=== PATIENT | female | born 1935 | race African-American/Black ===

== ENCOUNTER 2018-04-08 11:25 | Inpatient (IN) | payer MEDICARE, OTHER ==
[~2018-04-08] VITALS: Ht 162.6 cm; Wt 68.9 kg
[2018-04-08] MEDS ORDERED: SODIUM CHLORIDE 0.9% 500 ML IV ONE (11:37)
[2018-04-08 12:35] LABS: CHLORIDE 97 mEq/L (98-107); HEMOGLOBIN. 11.9 g/dL (12.0-16.0); MEAN CORPUSCULAR HEMOGLOBIN 32.7 pg (28.0-32.0); MEAN CORPUSCULAR VOLUME 99.3 fL (81.0-99.0); MEAN PLATELET VOLUME 7.6 fl (7.4-10.4); PLATELET 214 x1000/uL (130-400); RED BLOOD CELL COUNT 3.63 mill/uL (4.2-5.4)
[2018-04-08 12:39] LABS: PROTHROMBIN TIME 10.7 sec (9.4-11.6)
[2018-04-08 12:46] LABS: CREATINE KINASE MB FRACTION 1.7 ng/mL (0.5-3.6)
[2018-04-08 12:47] LABS: PARTIAL THROMBOPLASTIN TIME < 20.0 sec (23.4-31.0)
[2018-04-08 13:11] LABS: PLATELET ESTIMATE NORMAL
[2018-04-08] MEDS ORDERED: ENOXAPARIN 40MG/0.4ML SYR SUBCUT SCH (13:15)
[2018-04-08] MEDS ORDERED: HYDROCODONE/ACETAMINOPHEN 5/325MG TABLET PO PRN (13:15)
[2018-04-08] MEDS ORDERED: ACETAMINOPHEN 325MG TABLET PO PRN (13:15)
[2018-04-08] MEDS ORDERED: ONDANSETRON HCL 4MG/2ML VIAL IV PRN (13:15)
[2018-04-08] MEDS ORDERED: DIPHENHYDRAMINE 50MG/ML VIAL IV PRN (13:15)
[2018-04-08] MEDS ORDERED: GUAIFENESIN 200MG/10ML SUGAR FREE UDC PO PRN (13:15)
[2018-04-08] MEDS ORDERED: NA PHOS,M-B/NA PHOS,DI-BA ENEMA 118ML PR PRN (13:15)
[2018-04-08] MEDS ORDERED: CLONIDINE 0.1MG TABLET PO PRN (13:15)
[2018-04-08] MEDS ORDERED: IPRATROPIUM/ALBUTEROL 0.5-3(2.5)MG/3ML NEB INH PRN (13:15)
[2018-04-08] MEDS ORDERED: DOCUSATE SODIUM 100MG CAPSULE PO PRN (13:15)
[2018-04-08] MEDS ORDERED: HYDROMORPHONE HCL/PF 2MG/ML CPJ IV PRN (13:15)
[2018-04-08] MEDS ORDERED: MAGNESIUM/ALUMINUM HYDROXIDE/SIMETHICONE 30ML UDC PO PRN (13:15)
[2018-04-08] MEDS ORDERED: LORAZEPAM 2MG/ML CPJ IV PRN (13:15)
[2018-04-08 15:00] VITALS: BP 113/47
[2018-04-08 15:15] VITALS: BP 113/47
[2018-04-08 16:37] LABS: CHLORIDE 98 mEq/L (98-107)
[2018-04-08] MEDS: SODIUM CHLORIDE 0.45% 1,000 ML IV SCH (17:02)
[2018-04-08] MEDS: ENOXAPARIN 30MG/0.3ML SYR SUBCUT SCH (17:03)
[2018-04-08 20:00] VITALS: BP 110/57
[2018-04-08] MEDS ORDERED: ATOR10TA69 PO (22:02)
[2018-04-08] MEDS ORDERED: OXAZ15CA PO (22:02)
[2018-04-08] MEDS ORDERED: AMLO5TAB88 PO (22:03)
[2018-04-08] MEDS ORDERED: ALBU90AE INH (22:03)
[2018-04-08] MEDS ORDERED: MOME13HF2 INH (22:03)
[2018-04-08] MEDS ORDERED: METO-539 PO (22:03)
[2018-04-08] MEDS ORDERED: ALBU05 NEB (22:03)
[2018-04-08] MEDS ORDERED: SPIR25TA6 PO (22:03)
[2018-04-08] MEDS ORDERED: POTA10TA2 PO (22:03)
[2018-04-08] MEDS ORDERED: ASPI-1159 PO (22:03)
[2018-04-08] MEDS ORDERED: THEO200T17 PO (22:03)
[2018-04-08] MEDS ORDERED: FURO20TA4 PO (22:04)
[2018-04-09] VITALS: BP 127/57
[2018-04-09 04:00] VITALS: BP 122/59
[2018-04-09 06:32] LABS: HEMATOCRIT. 36.1 % (36.0-48.0); HEMOGLOBIN. 11.9 g/dL (12.0-16.0); MEAN CORPUSCULAR HEMOGLOBIN 32.6 pg (28.0-32.0); MEAN CORPUSCULAR VOLUME 99.1 fL (81.0-99.0); MEAN PLATELET VOLUME 7.6 fl (7.4-10.4); PLATELET 182 x1000/uL (130-400); RED BLOOD CELL COUNT 3.64 mill/uL (4.2-5.4)
[2018-04-09 06:45] LABS: CHLORIDE 98 mEq/L (98-107)
[2018-04-09 06:53] LABS: LDL CHOLESTEROL 56 mg/dL (5-100)
[2018-04-09 06:55] LABS: HDL CHOLESTEROL 72 mg/dL (40-59); T4 FREE 1.18 ng/dL (0.76-1.46)
[2018-04-09 08:00] VITALS: BP 129/66
[2018-04-09] MEDS ORDERED: ASPIRIN 81MG EC TABLET PO SCH (09:00)
[2018-04-09] MEDS: ENOXAPARIN 30MG/0.3ML SYR SUBCUT SCH (10:17)
[2018-04-09] MEDS: SODIUM CHLORIDE 0.45% 1,000 ML IV SCH (10:21)
[2018-04-09 12:00] VITALS: BP 121/61
[2018-04-09 15:23] LABS: PLATELET ESTIMATE NORMAL
[2018-04-09 16:00] VITALS: BP 146/68
[2018-04-09] MEDS ORDERED: AMLODIPINE 5MG TABLET PO NR (17:15)
[2018-04-09 17:40] VITALS: BP 146/90
[2018-04-10] MEDS ORDERED: ENOXAPARIN 40MG/0.4ML SYR SUBCUT SCH (09:00)
== END 2018-04-09 19:08 | disposition short-term general hospital (02) | DRG 640 ==
LOC: ER 11:25 → 5WST 13:08 → EDBEDREQ 13:11 → ENRESERV 13:25
PROVIDERS: ADMIT Internal Medicine; ATTEND Internal Medicine
DX: E86.0 Dehydration (principal); G93.41 Metabolic encephalopathy; E46 Unspecified protein-calorie malnutrition; R55 Syncope and collapse; D64.9 Anemia, unspecified; G47.00 Insomnia, unspecified; I10 Essential (primary) hypertension; I48.91 Unspecified atrial fibrillation; J44.9 Chronic obstructive pulmonary disease, unspecified; Z79.82 Long term (current) use of aspirin; Z79.899 Other long term (current) drug therapy; Z87.891 Personal history of nicotine dependence; Z68.26 Body mass index [BMI] 26.0-26.9, adult
CPT/HCPCS: 36415; 70450; 70486; 71045; 72125; 80048; 80053; 80061; 82553; 83735; 83880; 84439; 84443; 84484; 85025; 85610; 85730; 93005; 96360; 99285; J1200; J1650; J7040

== ENCOUNTER 2022-03-05 17:03 | Inpatient (IN) | payer MEDICARE, OTHER ==
[~2022-03-05] VITALS: Ht 167.6 cm; Wt 62.7 kg
[~2022-03-05 17:03] MED LIST: ALBU05 NEB; ALBU90AE INH; AMLO5TAB88 PO; ASPI-1497 PO; ATOR10TA69 PO; FURO20TA4 PO; METO-539 PO; MOME13HF2 INH; OXAZ15CA3 PO; POTA10TA2 PO; SPIR25TA6 PO; THEO200T17 PO
[2022-03-05] MEDS ORDERED: PIPERACILLIN/TAZ 3.375G PREMIX 50 ML IV ONE (17:45)
[2022-03-05] MEDS ORDERED: VANCOMYCIN 1G PREMIX 200 ML IV ONE (17:45)
[2022-03-05] MEDS ORDERED: FENTANYL 2500MCG/250ML PMX 250 ML IV STA (18:24)
[2022-03-05 18:27] LABS: BG BASE EXCESS 13.2 mmol/L (-2.0-2.0); BG CARBOXYHEMOGLOBIN 0.6 % (0.5-1.5); BG DEOXYHEMOGLOBIN 0.8 % (0.0-5.0); BG FRACTION INSPIRED OXYGEN 100; BG HCO3 ACT 46.5 mmol/L (22.0-26.0); BG METHEMOGLOBIN 0.2 % (0.0-1.5); BG OXYGEN SATURATION 99.2 % (92.0-98.5); BG OXYHEMOGLOBIN 98.4 % (94.0-97.0); BG PCO2 128.6 mmHg (35.0-45.0); BG PH 7.176 (7.350-7.450); BG SAMPLE SITE LEFT BRACHIAL; BG TOTAL HEMOGLOBIN 12.5 g/dL (12.0-18.0); BG VENT MODE MASK - NRB
[2022-03-05] MEDS ORDERED: MIDAZOLAM 100MG/100ML PMX 100 ML IV PRN ×2 (18:30→22:00)
[2022-03-05 18:33] LABS: BASOPHILS % 0.2 % (0.0-2.0); EOSINOPHILS % 0.7 % (0.0-5.0); HEMATOCRIT. 37.8 % (36.0-48.0); HEMOGLOBIN. 12.2 g/dL (12.0-16.0); LYMPHOCYTES % 18.3 % (20.0-50.0); MEAN CORPUSCULAR HEMOGLOBIN 32.7 pg (28.0-32.0); MEAN CORPUSCULAR VOLUME 100.9 fL (81.0-99.0); MONOCYTES % 7.6 % (2.0-8.0); NEUTROPHILS % 73.2 % (40.0-76.0); PLATELET 185 x1000/uL (130-400); RED BLOOD CELL COUNT 3.75 mill/uL (4.2-5.4); RED CELL DISTRIBUTION WIDTH 14.1 % (11.6-14.6)
[2022-03-05 18:39] LABS: CHLORIDE 87 mEq/L (98-107)
[2022-03-05 18:45] LABS: INR 0.9; PROTHROMBIN TIME 10.1 sec (9.6-11.0)
[2022-03-05] MEDS ORDERED: FENTANYL 2500MCG/250ML PMX 250 ML IV PRN ×2 (18:45→22:00)
[2022-03-05 19:21] LABS: CLARITY URINE TURBID (CLEAR); COLOR URINE YELLOW (YELLOW); KETONES URINE NEGATIVE (NEGATIVE); LEUKOCYTE ESTERASE URINE 3+ (NEGATIVE); NITRITE URINE NEGATIVE (NEGATIVE); OCCULT BLOOD URINE TRACE (NEGATIVE); PH URINE 6.5 (4.5-8.0); PROTEIN URINE 1+ (NEGATIVE); SPECIFIC GRAVITY URINE 1.019 (1.005-1.030); UROBILINOGEN URINE 0.2 E.U./dL (0.2-1.0)
[2022-03-05 19:43] LABS: BG BASE EXCESS 17.6 mmol/L (-2.0-2.0); BG FRACTION INSPIRED OXYGEN 100; BG HCO3 ACT 41.7 mmol/L (22.0-26.0); BG METHEMOGLOBIN 0.1 % (0.0-1.5); BG OXYHEMOGLOBIN 98.9 % (94.0-97.0); BG PCO2 46.2 mmHg (35.0-45.0); BG PH 7.573 (7.350-7.450); BG PO2 507.3 mmHg (75.0-100.0); BG SAMPLE SITE RIGHT RADIAL; BG TOTAL HEMOGLOBIN 12.4 g/dL (12.0-18.0); BG VENT MODE VENT - AC
[2022-03-05] MEDS ORDERED: SODIUM BICARBONATE 8.4% 1 MEQ/ML 50ML SYR IV ONE (19:45)
[2022-03-05] MEDS ORDERED: NOREPINEPHRINE 8 MG in DEXT 5% WATER 242 ML IV STA (21:40)
[2022-03-05] MEDS ORDERED: NOREPINEPHRINE 8MG/250ML PMX 250 ML IV PRN (21:50)
[2022-03-05] MEDS ORDERED: SODIUM BICARBONATE 8.4% 1 MEQ/ML 50ML SYR IV NR (21:51)
[2022-03-05] MEDS ORDERED: IPRATROPIUM/ALBUTEROL 0.5-3(2.5)MG/3ML NEB HHN PRN (22:00)
[2022-03-05] MEDS ORDERED: ENOXAPARIN 40MG/0.4ML SYR SUBCUT SCH (22:15)
[2022-03-05] MEDS ORDERED: DOCUSATE SODIUM 100MG CAPSULE PO PRN (22:15)
[2022-03-05] MEDS ORDERED: ONDANSETRON HCL 4MG/2ML INJ IV PRN (22:15)
[2022-03-05] MEDS ORDERED: ACETAMINOPHEN 325MG TABLET PO PRN (22:15)
[2022-03-05] MEDS: DEXT 5%/0.45% NACL 1000ML 1,000 ML IV SCH (22:50)
[2022-03-05 23:33] VITALS: BP 86/58
[2022-03-05 23:45] VITALS: BP 122/69
[2022-03-06] VITALS (59 sets, daily range): BP systolic 86–140; BP diastolic 47–86
[2022-03-06] MEDS ORDERED: DEXTROSE 50% WATER 50ML SYRINGE IV PRN
[2022-03-06] MEDS: IPRATROPIUM/ALBUTEROL 0.5-3(2.5)MG/3ML NEB HHN SCH ×5 (00:42→20:50)
[2022-03-06] MEDS: BLOOD SUGAR DIAGNOSTIC STRIP TEST SCH ×4 (00:43→18:00)
[2022-03-06] MEDS: PANTOPRAZOLE SODIUM 40 MG/VIAL IV SCH ×2 (00:45→09:57)
[2022-03-06] MEDS: ENOXAPARIN 30MG/0.3ML SYR SUBCUT SCH (00:46)
[2022-03-06] MEDS: DEXT 5%/0.45% NACL 1000ML 1,000 ML IV SCH (00:46)
[2022-03-06] MEDS ORDERED: PIPERACILLIN/TAZOBACTAM 3.375 G in DEXTROSE 5% WATER 50 ML IV SCH (03:00)
[2022-03-06 04:53] LABS: BASOPHILS % 0.1 % (0.0-2.0); EOSINOPHILS % 0.2 % (0.0-5.0); HEMATOCRIT. 34.9 % (36.0-48.0); HEMOGLOBIN. 11.1 g/dL (12.0-16.0); LYMPHOCYTES % 11.5 % (20.0-50.0); MEAN CORPUSCULAR HEMOGLOBIN 31.9 pg (28.0-32.0); MEAN CORPUSCULAR VOLUME 99.9 fL (81.0-99.0); MEAN PLATELET VOLUME 7.5 fl (7.4-10.4); MONOCYTES % 10.5 % (2.0-8.0); NEUTROPHILS % 77.7 % (40.0-76.0); PLATELET 176 x1000/uL (130-400); RED BLOOD CELL COUNT 3.49 mill/uL (4.2-5.4); RED CELL DISTRIBUTION WIDTH 13.7 % (11.6-14.6)
[2022-03-06 05:05] LABS: CHLORIDE 87 mEq/L (98-107)
[2022-03-06] MEDS: PIPERACILLIN/TAZOBACTAM 3.375G in DEXT 5% WATER 50ML IV SCH ×3 (06:00→21:40)
[2022-03-06] MEDS: INSULIN LISPRO 100 UNITS/ML SUBCUT SCH ×4 (06:07→18:00)
[2022-03-06 09:00] LABS: BG BASE EXCESS 14.3 mmol/L (-2.0-2.0); BG CARBOXYHEMOGLOBIN 0.3 % (0.5-1.5); BG DEOXYHEMOGLOBIN 1.2 % (0.0-5.0); BG FRACTION INSPIRED OXYGEN 50; BG HCO3 ACT 34.9 mmol/L (22.0-26.0); BG OXYGEN SATURATION 98.8 % (92.0-98.5); BG OXYHEMOGLOBIN 98.5 % (94.0-97.0); BG PCO2 29.8 mmHg (35.0-45.0); BG PH 7.687 (7.350-7.450); BG PO2 219.4 mmHg (75.0-100.0); BG SAMPLE SITE RIGHT RADIAL; BG TOTAL HEMOGLOBIN 11.4 g/dL (12.0-18.0); BG VENT MODE VENT - AC
[2022-03-06] MEDS: FAMOTIDINE 20MG/2ML VIAL IV SCH (21:40)
[2022-03-07] VITALS (56 sets, daily range): BP systolic 86–161; BP diastolic 53–103
[2022-03-07] MEDS: IPRATROPIUM/ALBUTEROL 0.5-3(2.5)MG/3ML NEB HHN SCH ×6 (00:37→20:35)
[2022-03-07] MEDS: BLOOD SUGAR DIAGNOSTIC STRIP TEST SCH ×4 (00:47→17:20)
[2022-03-07] MEDS: ENOXAPARIN 30MG/0.3ML SYR SUBCUT SCH (00:47)
[2022-03-07] MEDS: INSULIN LISPRO 100 UNITS/ML SUBCUT SCH ×4 (05:36→17:20)
[2022-03-07] MEDS: PIPERACILLIN/TAZOBACTAM 3.375G in DEXT 5% WATER 50ML IV SCH ×3 (05:37→22:31)
[2022-03-07 09:09] LABS: BG BASE EXCESS 9.1 mmol/L (-2.0-2.0); BG DEOXYHEMOGLOBIN 1.7 % (0.0-5.0); BG FRACTION INSPIRED OXYGEN 40; BG HCO3 ACT 33.2 mmol/L (22.0-26.0); BG METHEMOGLOBIN 0.3 % (0.0-1.5); BG OXYGEN SATURATION 98.3 % (92.0-98.5); BG PCO2 43.8 mmHg (35.0-45.0); BG PH 7.498 (7.350-7.450); BG PO2 134.6 mmHg (75.0-100.0); BG SAMPLE SITE RIGHT RADIAL; BG TOTAL HEMOGLOBIN 10.9 g/dL (12.0-18.0); BG VENT MODE VENT - AC
[2022-03-07] MEDS ORDERED: BISACODYL 5MG TABLET PO PRN (11:15)
[2022-03-07] MEDS: METHYLPREDNISOLONE SOD SUCC 40 MG/ML VIAL IV SCH ×2 (11:32→22:00)
[2022-03-07] MEDS ORDERED: LACTULOSE 20G/30ML UDC PO PRN (12:45)
[2022-03-07 13:40] LABS: BG BASE EXCESS 10.6 mmol/L (-2.0-2.0); BG CARBOXYHEMOGLOBIN 0.4 % (0.5-1.5); BG DEOXYHEMOGLOBIN 4.6 % (0.0-5.0); BG FRACTION INSPIRED OXYGEN 30; BG HCO3 ACT 36.2 mmol/L (22.0-26.0); BG METHEMOGLOBIN 0.3 % (0.0-1.5); BG OXYGEN SATURATION 95.4 % (92.0-98.5); BG OXYHEMOGLOBIN 94.7 % (94.0-97.0); BG PCO2 52.6 mmHg (35.0-45.0); BG PH 7.455 (7.350-7.450); BG PO2 78.5 mmHg (75.0-100.0); BG SAMPLE SITE RIGHT RADIAL; BG TOTAL HEMOGLOBIN 11.9 g/dL (12.0-18.0); BG VENT MODE VENT - CPAP
[2022-03-07 20:28] LABS: HEMOGLOBIN. 11.1 g/dL (12.0-16.0); MEAN CORPUSCULAR HEMOGLOBIN 32.5 pg (28.0-32.0); MEAN CORPUSCULAR VOLUME 99.6 fL (81.0-99.0); MEAN PLATELET VOLUME 7.5 fl (7.4-10.4); PLATELET 169 x1000/uL (130-400); RED BLOOD CELL COUNT 3.41 mill/uL (4.2-5.4); RED CELL DISTRIBUTION WIDTH 14.5 % (11.6-14.6)
[2022-03-07 20:36] LABS: CHLORIDE 92 mEq/L (98-107)
[2022-03-07] MEDS: AMLODIPINE 2.5MG TABLET NG SCH (21:00)
[2022-03-07] MEDS: ENOXAPARIN 40MG/0.4ML SYR SUBCUT SCH (21:00)
[2022-03-07] MEDS: FAMOTIDINE 20MG/2ML VIAL IV SCH (21:00)
[2022-03-07] MEDS: ATORVASTATIN CALCIUM 10MG TABLET NG SCH (21:00)
[2022-03-07 22:14] LABS: PLATELET ESTIMATE NORMAL
[2022-03-08] VITALS (44 sets, daily range): BP systolic 96–160; BP diastolic 53–86
[2022-03-08] MEDS: BLOOD SUGAR DIAGNOSTIC STRIP TEST SCH ×4 (00:29→18:55)
[2022-03-08] MEDS: INSULIN LISPRO 100 UNITS/ML SUBCUT SCH ×4 (00:40→18:53)
[2022-03-08] MEDS: IPRATROPIUM/ALBUTEROL 0.5-3(2.5)MG/3ML NEB HHN SCH ×6 (00:52→20:25)
[2022-03-08 05:28] LABS: HEMOGLOBIN. 10.9 g/dL (12.0-16.0); MEAN CORPUSCULAR HEMOGLOBIN 32.6 pg (28.0-32.0); MEAN CORPUSCULAR VOLUME 98.4 fL (81.0-99.0); MEAN PLATELET VOLUME 7.5 fl (7.4-10.4); PLATELET 160 x1000/uL (130-400); RED BLOOD CELL COUNT 3.35 mill/uL (4.2-5.4); RED CELL DISTRIBUTION WIDTH 14.5 % (11.6-14.6)
[2022-03-08] MEDS: METHYLPREDNISOLONE SOD SUCC 40 MG/ML VIAL IV SCH ×3 (06:15→22:12)
[2022-03-08] MEDS: PIPERACILLIN/TAZOBACTAM 3.375G in DEXT 5% WATER 50ML IV SCH ×3 (06:16→22:13)
[2022-03-08 08:44] LABS: BG BASE EXCESS 11.1 mmol/L (-2.0-2.0); BG CARBOXYHEMOGLOBIN 0.3 % (0.5-1.5); BG DEOXYHEMOGLOBIN 2.9 % (0.0-5.0); BG FRACTION INSPIRED OXYGEN 30; BG HCO3 ACT 38.3 mmol/L (22.0-26.0); BG METHEMOGLOBIN 0.1 % (0.0-1.5); BG OXYGEN SATURATION 97.1 % (92.0-98.5); BG OXYHEMOGLOBIN 96.7 % (94.0-97.0); BG PCO2 64.8 mmHg (35.0-45.0); BG PH 7.389 (7.350-7.450); BG PO2 100.6 mmHg (75.0-100.0); BG SAMPLE SITE RIGHT FEMORAL; BG TOTAL HEMOGLOBIN 11.3 g/dL (12.0-18.0); BG VENT MODE NASAL CANNULA
[2022-03-08] MEDS: AMLODIPINE 2.5MG TABLET NG SCH ×2 (09:07→22:10)
[2022-03-08] MEDS: ASPIRIN 81MG TABLET PO SCH (09:07)
[2022-03-08 14:24] LABS: PLATELET ESTIMATE NORMAL
[2022-03-08 15:07] LABS: HEMATOCRIT 33.1 % (36.0-48.0); HEMOGLOBIN 10.7 g/dL (12.0-16.0)
[2022-03-08] MEDS: FAMOTIDINE 20MG/2ML VIAL IV SCH (21:00)
[2022-03-08] MEDS: ENOXAPARIN 40MG/0.4ML SYR SUBCUT SCH (21:00)
[2022-03-08] MEDS: ATORVASTATIN CALCIUM 10MG TABLET NG SCH (21:00)
[2022-03-09] VITALS (23 sets, daily range): BP systolic 114–155; BP diastolic 35–93
[2022-03-09] MEDS: BLOOD SUGAR DIAGNOSTIC STRIP TEST SCH ×4 (00:11→17:18)
[2022-03-09] MEDS: INSULIN LISPRO 100 UNITS/ML SUBCUT SCH ×4 (00:20→17:19)
[2022-03-09] MEDS: IPRATROPIUM/ALBUTEROL 0.5-3(2.5)MG/3ML NEB HHN SCH ×6 (00:22→20:11)
[2022-03-09] MEDS: METHYLPREDNISOLONE SOD SUCC 40 MG/ML VIAL IV SCH ×3 (05:46→21:33)
[2022-03-09] MEDS: PIPERACILLIN/TAZOBACTAM 3.375G in DEXT 5% WATER 50ML IV SCH ×3 (05:46→21:33)
[2022-03-09] MEDS: ASPIRIN 81MG TABLET PO SCH (09:00)
[2022-03-09] MEDS: AMLODIPINE 5MG TABLET PO SCH ×2 (09:00→21:35)
[2022-03-09] MEDS ORDERED: AMLODIPINE 2.5MG TABLET PO NR (11:30)
[2022-03-09 16:01] LABS: BG BASE EXCESS 7.1 mmol/L (-2.0-2.0); BG CARBOXYHEMOGLOBIN 0.3 % (0.5-1.5); BG DEOXYHEMOGLOBIN 0.9 % (0.0-5.0); BG FRACTION INSPIRED OXYGEN 60; BG HCO3 ACT 34.3 mmol/L (22.0-26.0); BG METHEMOGLOBIN 0.2 % (0.0-1.5); BG OXYGEN SATURATION 99.1 % (92.0-98.5); BG OXYHEMOGLOBIN 98.6 % (94.0-97.0); BG PCO2 62.7 mmHg (35.0-45.0); BG PH 7.356 (7.350-7.450); BG PO2 250.3 mmHg (75.0-100.0); BG SAMPLE SITE RIGHT RADIAL; BG TOTAL HEMOGLOBIN 11.7 g/dL (12.0-18.0); BG TOTAL RESPIRATORY RATE 25 b/min; BG VENT MODE MASK - BIPAP
[2022-03-09] MEDS: ENOXAPARIN 40MG/0.4ML SYR SUBCUT SCH (21:33)
[2022-03-09] MEDS: FAMOTIDINE 20MG/2ML VIAL IV SCH (21:34)
[2022-03-09] MEDS: ATORVASTATIN CALCIUM 10MG TABLET NG SCH (21:34)
[2022-03-10] VITALS (17 sets, daily range): BP systolic 110–151; BP diastolic 42–71
[2022-03-10] MEDS: BLOOD SUGAR DIAGNOSTIC STRIP TEST SCH ×4 (00:07→16:53)
[2022-03-10] MEDS: IPRATROPIUM/ALBUTEROL 0.5-3(2.5)MG/3ML NEB HHN SCH ×4 (02:05→21:06)
[2022-03-10 04:32] LABS: HEMATOCRIT. 29.2 % (36.0-48.0); HEMOGLOBIN. 9.7 g/dL (12.0-16.0); MEAN CORPUSCULAR HEMOGLOBIN 33.1 pg (28.0-32.0); MEAN CORPUSCULAR VOLUME 99.5 fL (81.0-99.0); MEAN PLATELET VOLUME 7.8 fl (7.4-10.4); PLATELET 162 x1000/uL (130-400); RED BLOOD CELL COUNT 2.93 mill/uL (4.2-5.4); RED CELL DISTRIBUTION WIDTH 14.7 % (11.6-14.6)
[2022-03-10] MEDS: METHYLPREDNISOLONE SOD SUCC 40 MG/ML VIAL IV SCH ×3 (05:25→21:46)
[2022-03-10] MEDS: PIPERACILLIN/TAZOBACTAM 3.375G in DEXT 5% WATER 50ML IV SCH ×3 (05:25→22:51)
[2022-03-10] MEDS: INSULIN LISPRO 100 UNITS/ML SUBCUT SCH ×4 (05:34→17:14)
[2022-03-10 08:37] LABS: BG BASE EXCESS 8.1 mmol/L (-2.0-2.0); BG CARBOXYHEMOGLOBIN 0.7 % (0.5-1.5); BG DEOXYHEMOGLOBIN 4.7 % (0.0-5.0); BG FRACTION INSPIRED OXYGEN 30; BG HCO3 ACT 33.2 mmol/L (22.0-26.0); BG METHEMOGLOBIN 0.3 % (0.0-1.5); BG OXYGEN SATURATION 95.3 % (92.0-98.5); BG OXYHEMOGLOBIN 94.3 % (94.0-97.0); BG PCO2 49.6 mmHg (35.0-45.0); BG PH 7.444 (7.350-7.450); BG PO2 76.2 mmHg (75.0-100.0); BG SAMPLE SITE RIGHT RADIAL; BG TOTAL HEMOGLOBIN 9.7 g/dL (12.0-18.0); BG TOTAL RESPIRATORY RATE 22 b/min; BG VENT MODE MASK - BIPAP
[2022-03-10 09:07] LABS: PLATELET ESTIMATE NORMAL
[2022-03-10] MEDS: ASPIRIN 81MG TABLET PO SCH (09:53)
[2022-03-10] MEDS: AMLODIPINE 5MG TABLET PO SCH ×2 (09:53→21:46)
[2022-03-10] MEDS: DEXT 5%/0.45% NACL 1000ML 1,000 ML IV SCH (21:46)
[2022-03-10] MEDS: FAMOTIDINE 20MG TABLET PO SCH (21:46)
[2022-03-10] MEDS: ENOXAPARIN 40MG/0.4ML SYR SUBCUT SCH (21:47)
[2022-03-10] MEDS: ATORVASTATIN CALCIUM 10MG TABLET NG SCH (21:53)
[2022-03-11] VITALS: BP 143/69
[2022-03-11] MEDS: INSULIN LISPRO 100 UNITS/ML SUBCUT SCH ×4 (00:11→17:30)
[2022-03-11] MEDS: BLOOD SUGAR DIAGNOSTIC STRIP TEST SCH ×4 (00:11→17:30)
[2022-03-11] MEDS: IPRATROPIUM/ALBUTEROL 0.5-3(2.5)MG/3ML NEB HHN SCH ×4 (02:49→20:03)
[2022-03-11 04:00] VITALS: BP 149/65
[2022-03-11] MEDS: METHYLPREDNISOLONE SOD SUCC 40 MG/ML VIAL IV SCH ×3 (05:52→21:46)
[2022-03-11 06:41] LABS: HEMATOCRIT. 28.2 % (36.0-48.0); HEMOGLOBIN. 9.4 g/dL (12.0-16.0); MEAN CORPUSCULAR HEMOGLOBIN 32.6 pg (28.0-32.0); MEAN CORPUSCULAR VOLUME 98.3 fL (81.0-99.0); MEAN PLATELET VOLUME 8.1 fl (7.4-10.4); PLATELET 157 x1000/uL (130-400); RED BLOOD CELL COUNT 2.87 mill/uL (4.2-5.4); RED CELL DISTRIBUTION WIDTH 14.7 % (11.6-14.6)
[2022-03-11 08:25] VITALS: BP 138/52
[2022-03-11] MEDS: ASPIRIN 81MG TABLET PO SCH (08:31)
[2022-03-11] MEDS: AMLODIPINE 5MG TABLET PO SCH ×2 (08:31→20:39)
[2022-03-11 12:00] VITALS: BP 156/50
[2022-03-11] MEDS: DEXT 5%/0.45% NACL 1000ML 1,000 ML IV SCH (12:23)
[2022-03-11] MEDS: PHENOL/SODIUM PHENOLATE 1.4% SRPAY 177ML MM PRN (13:39)
[2022-03-11] MEDS: CLONIDINE 0.1MG TABLET PO SCH ×2 (13:40→21:47)
[2022-03-11] MEDS: THROAT LOZENGES-BENZOCAINE/MENTH/CETYLPYRD CL LOZENGES MM SCH ×2 (13:40→17:30)
[2022-03-11 14:02] LABS: BG BASE EXCESS 12.2 mmol/L (-2.0-2.0); BG CARBOXYHEMOGLOBIN 0.1 % (0.5-1.5); BG DEOXYHEMOGLOBIN 3.4 % (0.0-5.0); BG FRACTION INSPIRED OXYGEN 40; BG HCO3 ACT 38.5 mmol/L (22.0-26.0); BG METHEMOGLOBIN 0.3 % (0.0-1.5); BG OXYGEN SATURATION 96.6 % (92.0-98.5); BG OXYHEMOGLOBIN 96.2 % (94.0-97.0); BG PCO2 60.8 mmHg (35.0-45.0); BG PH 7.419 (7.350-7.450); BG PO2 95.9 mmHg (75.0-100.0); BG SAMPLE SITE LEFT RADIAL; BG TOTAL HEMOGLOBIN 9.6 g/dL (12.0-18.0); BG VENT MODE NASAL CANNULA
[2022-03-11 16:00] VITALS: BP 117/62
[2022-03-11 20:00] VITALS: BP 135/58
[2022-03-11] MEDS: ATORVASTATIN CALCIUM 10MG TABLET NG SCH (20:39)
[2022-03-11] MEDS: FAMOTIDINE 20MG TABLET PO SCH (20:39)
[2022-03-11] MEDS: ENOXAPARIN 40MG/0.4ML SYR SUBCUT SCH (20:39)
[2022-03-12] VITALS: BP 114/61
[2022-03-12] MEDS: BLOOD SUGAR DIAGNOSTIC STRIP TEST SCH ×4 (00:23→17:05)
[2022-03-12] MEDS: IPRATROPIUM/ALBUTEROL 0.5-3(2.5)MG/3ML NEB HHN SCH ×4 (00:30→20:18)
[2022-03-12] MEDS: INSULIN LISPRO 100 UNITS/ML SUBCUT SCH ×4 (00:41→17:14)
[2022-03-12] MEDS: THROAT LOZENGES-BENZOCAINE/MENTH/CETYLPYRD CL LOZENGES MM SCH ×4 (00:48→17:05)
[2022-03-12] MEDS: DEXT 5%/0.45% NACL 1000ML 1,000 ML IV SCH ×2 (01:27→14:22)
[2022-03-12 04:00] VITALS: BP 128/68
[2022-03-12] MEDS: METHYLPREDNISOLONE SOD SUCC 40 MG/ML VIAL IV SCH ×2 (05:44→14:22)
[2022-03-12] MEDS: CLONIDINE 0.1MG TABLET PO SCH ×2 (05:45→14:22)
[2022-03-12 06:48] LABS: HEMATOCRIT. 28.3 % (36.0-48.0); HEMOGLOBIN. 9.4 g/dL (12.0-16.0); MEAN CORPUSCULAR HEMOGLOBIN 33.1 pg (28.0-32.0); MEAN CORPUSCULAR VOLUME 99.5 fL (81.0-99.0); MEAN PLATELET VOLUME 7.2 fl (7.4-10.4); PLATELET 180 x1000/uL (130-400); RED BLOOD CELL COUNT 2.84 mill/uL (4.2-5.4); RED CELL DISTRIBUTION WIDTH 14.5 % (11.6-14.6)
[2022-03-12 06:58] LABS: CHLORIDE 96 mEq/L (98-107)
[2022-03-12 08:00] VITALS: BP 123/56
[2022-03-12] MEDS: ASPIRIN 81MG TABLET PO SCH (10:27)
[2022-03-12] MEDS: AMLODIPINE 5MG TABLET PO SCH ×2 (10:27→20:35)
[2022-03-12 11:18] LABS: BG BASE EXCESS 9.3 mmol/L (-2.0-2.0); BG CARBOXYHEMOGLOBIN 0.1 % (0.5-1.5); BG DEOXYHEMOGLOBIN 5.6 % (0.0-5.0); BG FRACTION INSPIRED OXYGEN 30; BG HCO3 ACT 34.7 mmol/L (22.0-26.0); BG METHEMOGLOBIN 0.1 % (0.0-1.5); BG OXYGEN SATURATION 94.4 % (92.0-98.5); BG OXYHEMOGLOBIN 94.2 % (94.0-97.0); BG PCO2 52.8 mmHg (35.0-45.0); BG PH 7.436 (7.350-7.450); BG PO2 75.2 mmHg (75.0-100.0); BG SAMPLE SITE LEFT RADIAL; BG TOTAL HEMOGLOBIN 9.7 g/dL (12.0-18.0); BG VENT MODE MASK - BIPAP
[2022-03-12 12:00] VITALS: BP 121/54
[2022-03-12] MEDS ORDERED: FUROSEMIDE 40MG/4ML VIAL IVP NR (14:45)
[2022-03-12 16:00] VITALS: BP 119/55
[2022-03-12] MEDS: PHENOL/SODIUM PHENOLATE 1.4% SRPAY 177ML MM PRN (17:05)
[2022-03-12] MEDS: ATORVASTATIN CALCIUM 10MG TABLET NG SCH (20:35)
[2022-03-12] MEDS: FAMOTIDINE 20MG TABLET PO SCH (20:35)
[2022-03-12] MEDS: ENOXAPARIN 40MG/0.4ML SYR SUBCUT SCH (20:36)
[2022-03-12 21:20] VITALS: BP 131/56
[2022-03-12 22:06] LABS: PLATELET ESTIMATE NORMAL
[2022-03-12 23:14] LABS: PLATELET ESTIMATE NORMAL
== END 2022-03-12 22:30 | disposition short-term general hospital (02) | DRG 871 ==
LOC: ER 17:03 → MICUSO 20:49 → ENRESERV 22:38 → 6WST 03-10 13:09
PROVIDERS: ADMIT Hospitalist; ATTEND Hospitalist
PROC: 5A1945Z Respiratory Ventilation, 24-96 Consecutive Hours (ICD-10-PCS; principal; 2022-03-05)
PROC: 0BH17EZ Insertion of Endotracheal Airway into Trachea, Via Natural or Artificial Opening (ICD-10-PCS; 2022-03-05)
PROC: 5A09457 Assistance with Respiratory Ventilation, 24-96 Consecutive Hours, Continuous Positive Airway Pressure (ICD-10-PCS; 2022-03-09)
PROC: 5A0935A Assistance with Respiratory Ventilation, Less than 24 Consecutive Hours, High Flow/Velocity Cannula (ICD-10-PCS; 2022-03-10)
DX: A41.81 Sepsis due to Enterococcus (principal); J96.22 Acute and chronic respiratory failure with hypercapnia; I50.33 Acute on chronic diastolic (congestive) heart failure; R65.21 Severe sepsis with septic shock; E44.1 Mild protein-calorie malnutrition; G93.40 Encephalopathy, unspecified; N39.0 Urinary tract infection, site not specified; I11.0 Hypertensive heart disease with heart failure; I27.20 Pulmonary hypertension, unspecified; E78.5 Hyperlipidemia, unspecified; J43.9 Emphysema, unspecified; E11.9 Type 2 diabetes mellitus without complications; I48.0 Paroxysmal atrial fibrillation; D63.8 Anemia in other chronic diseases classified elsewhere; Z79.4 Long term (current) use of insulin; Z20.822 Contact with and (suspected) exposure to COVID-19; Z99.81 Dependence on supplemental oxygen; Z79.899 Other long term (current) drug therapy; Z87.891 Personal history of nicotine dependence; Z79.82 Long term (current) use of aspirin
CPT/HCPCS: 36415; 36600; 71045; 80048; 80053; 81003; 82375; 82805; 82962; 83036; 83605; 83880; 84145; 84484; 85014; 85018; 85025; 87070; 87077; 87186; 87426; 87804; 93005; 93306; 93970; 94003; 94640; 94660; 97162; 97166; 99291; C9113; C9803; J1650; J1815; J1940; J2250; J2543; J2920; J3010; J3370; J3490; J7060

== ENCOUNTER 2022-03-20 15:55 | Inpatient (IN) | payer MEDICARE, OTHER ==
[~2022-03-20] VITALS: Ht 160 cm; Wt 69.4 kg
[~2022-03-20 15:55] MED LIST changes: -ALBU90AE INH; -ASPI-1497 PO; +ETOMIDATE 2MG/ML 10ML VIAL IV ONE; -MOME13HF2 INH; -THEO200T17 PO; +VECURONIUM BROMIDE 10 MG/VIAL IV ONE
[2022-03-20] MEDS ORDERED: IPRATROPIUM BROMIDE (0.02%) 0.5MG/2.5ML NEB HHN STA (16:14)
[2022-03-20] MEDS ORDERED: METHYLPREDNISOLONE SOD SUCC 125 MG/2 ML VIAL IV STA (16:14)
[2022-03-20] MEDS ORDERED: ALBUTEROL (0.083%) 2.5MG/3ML NEB HHN SCH (16:30)
[2022-03-20 17:00] LABS: HEMATOCRIT. 36.3 % (36.0-48.0); HEMOGLOBIN. 11.5 g/dL (12.0-16.0); MEAN CORPUSCULAR HEMOGLOBIN 31.9 pg (28.0-32.0); MEAN CORPUSCULAR VOLUME 100.9 fL (81.0-99.0); MEAN PLATELET VOLUME 8.4 fl (7.4-10.4); PLATELET 205 x1000/uL (130-400); RED CELL DISTRIBUTION WIDTH 14.6 % (11.6-14.6)
[2022-03-20] MEDS ORDERED: PROPOFOL 10MG/ML 100ML 100 ML IV ONE (17:00)
[2022-03-20 17:05] LABS: CHLORIDE 98 mEq/L (98-107)
[2022-03-20 17:15] LABS: BG BASE EXCESS 12.9 mmol/L (-2.0-2.0); BG CARBOXYHEMOGLOBIN 0.8 % (0.5-1.5); BG DEOXYHEMOGLOBIN 0.7 % (0.0-5.0); BG FRACTION INSPIRED OXYGEN 100; BG HCO3 ACT 39.1 mmol/L (22.0-26.0); BG METHEMOGLOBIN 0.2 % (0.0-1.5); BG OXYGEN SATURATION 99.3 % (92.0-98.5); BG OXYHEMOGLOBIN 98.3 % (94.0-97.0); BG PCO2 56.9 mmHg (35.0-45.0); BG PH 7.455 (7.350-7.450); BG PO2 531.2 mmHg (75.0-100.0); BG SAMPLE SITE RIGHT RADIAL; BG TOTAL HEMOGLOBIN 12.9 g/dL (12.0-18.0); BG VENT MODE VENT - AC
[2022-03-20 17:47] LABS: PLATELET ESTIMATE NORMAL
[2022-03-20] MEDS ORDERED: ONDANSETRON HCL 4MG/2ML INJ IV PRN (18:15)
[2022-03-20] MEDS ORDERED: GUAIFENESIN 200MG/10ML SUGAR FREE UDC PO PRN (18:15)
[2022-03-20] MEDS ORDERED: VANCOMYCIN 1G PREMIX 200 ML IV ONE (18:15)
[2022-03-20] MEDS ORDERED: ENOXAPARIN 40MG/0.4ML SYR SUBCUT SCH (18:15)
[2022-03-20] MEDS ORDERED: IPRATROPIUM/ALBUTEROL 0.5-3(2.5)MG/3ML NEB NEB PRN (18:15)
[2022-03-20] MEDS ORDERED: CLONIDINE 0.1MG TABLET PO PRN (18:15)
[2022-03-20] MEDS ORDERED: PIPERACILLIN/TAZ 3.375G PREMIX 50 ML IV SCH (18:15)
[2022-03-20] MEDS ORDERED: MAGNESIUM/ALUMINUM HYDROXIDE/SIMETHICONE 30ML UDC PO PRN (18:15)
[2022-03-20] MEDS ORDERED: NOREPINEPHRINE 8MG/250ML PMX 250 ML IV PRN (18:15)
[2022-03-20] MEDS ORDERED: CEFTRIAXONE 1 G PREMIX 50 ML IV ONE (18:15)
[2022-03-20] MEDS ORDERED: DOCUSATE SODIUM 100MG CAPSULE PO PRN (18:15)
[2022-03-20] MEDS ORDERED: ACETAMINOPHEN 325MG TABLET PO PRN ×2 (18:15)
[2022-03-20] MEDS ORDERED: VANCOMYCIN 1.25GM PMX (XELLIA) 250 ML IV NR (18:30)
[2022-03-20] MEDS: IPRATROPIUM/ALBUTEROL 0.5-3(2.5)MG/3ML NEB HHN SCH (20:17)
[2022-03-20 21:00] VITALS: BP 104/70
[2022-03-20 21:30] VITALS: BP 100/60
[2022-03-20] MEDS: DEXT 5%/LACTATED RINGERS 1,000 ML IV SCH (21:32)
[2022-03-20] MEDS: ENOXAPARIN 30MG/0.3ML SYR SUBCUT SCH (21:33)
[2022-03-20] MEDS: METHYLPREDNISOLONE SOD SUCC 125 MG/2 ML VIAL IV SCH (21:34)
[2022-03-20 22:00] VITALS: BP 114/51
[2022-03-20 22:30] VITALS: BP 103/55
[2022-03-20 23:30] VITALS: BP 111/57
[2022-03-20] MEDS ORDERED: PROPOFOL 10MG/ML 100ML 100 ML IV PRN (23:30)
[2022-03-20] MEDS ORDERED: DEXTROSE 50% WATER 50ML SYRINGE IV PRN (23:30)
[2022-03-21] VITALS (49 sets, daily range): BP systolic 89–138; BP diastolic 52–78
[2022-03-21] MEDS: IPRATROPIUM/ALBUTEROL 0.5-3(2.5)MG/3ML NEB HHN SCH ×6 (00:17→21:00)
[2022-03-21 01:48] LABS: FOLIC ACID (FOLATE) SERUM >20 ng/mL ng/mL (>5.38); VITAMIN B12 SERUM >2000 pg/mL pg/mL (211-911)
[2022-03-21 05:55] LABS: HEMATOCRIT. 28.9 % (36.0-48.0); HEMOGLOBIN. 9.4 g/dL (12.0-16.0); MEAN CORPUSCULAR HEMOGLOBIN 32.6 pg (28.0-32.0); MEAN CORPUSCULAR VOLUME 100.1 fL (81.0-99.0); MEAN PLATELET VOLUME 8.5 fl (7.4-10.4); PLATELET 186 x1000/uL (130-400); RED BLOOD CELL COUNT 2.88 mill/uL (4.2-5.4); RED CELL DISTRIBUTION WIDTH 14.5 % (11.6-14.6)
[2022-03-21 06:08] LABS: CHLORIDE 97 mEq/L (98-107)
[2022-03-21 06:17] LABS: PHOSPHORUS 2.3 mg/dL (2.5-4.9)
[2022-03-21] MEDS: PIPERACILLIN/TAZOBACTAM 3.375G in DEXT 5% WATER 50ML IV SCH ×3 (06:47→21:21)
[2022-03-21] MEDS: METHYLPREDNISOLONE SOD SUCC 125 MG/2 ML VIAL IV SCH ×3 (06:47→21:20)
[2022-03-21] MEDS: BLOOD SUGAR DIAGNOSTIC STRIP TEST SCH ×5 (06:47→23:54)
[2022-03-21] MEDS: INSULIN LISPRO 100 UNITS/ML SUBCUT SCH ×5 (06:48→23:59)
[2022-03-21 08:16] LABS: BG BASE EXCESS 7.2 mmol/L (-2.0-2.0); BG CARBOXYHEMOGLOBIN 0.3 % (0.5-1.5); BG DEOXYHEMOGLOBIN 2.3 % (0.0-5.0); BG FRACTION INSPIRED OXYGEN 40; BG HCO3 ACT 31.5 mmol/L (22.0-26.0); BG METHEMOGLOBIN 0.2 % (0.0-1.5); BG OXYGEN SATURATION 97.7 % (92.0-98.5); BG OXYHEMOGLOBIN 97.2 % (94.0-97.0); BG PCO2 43.6 mmHg (35.0-45.0); BG PH 7.477 (7.350-7.450); BG PO2 113.4 mmHg (75.0-100.0); BG SAMPLE SITE RIGHT RADIAL; BG TOTAL HEMOGLOBIN 10.4 g/dL (12.0-18.0); BG VENT MODE VENT - AC
[2022-03-21 09:06] LABS: CLARITY URINE CLEAR (CLEAR); COLOR URINE YELLOW (YELLOW); KETONES URINE TRACE (NEGATIVE); LEUKOCYTE ESTERASE URINE NEGATIVE (NEGATIVE); NITRITE URINE NEGATIVE (NEGATIVE); OCCULT BLOOD URINE 2+ (NEGATIVE); PROTEIN URINE TRACE (NEGATIVE); SPECIFIC GRAVITY URINE 1.023 (1.005-1.030); UROBILINOGEN URINE 0.2 E.U./dL (0.2-1.0)
[2022-03-21 09:17] LABS: *AMPHETAMINES SCREEN URINE NEGATIVE (NEGATIVE); *BARBITURATES SCREEN URINE NEGATIVE (NEGATIVE); *BENZODIAZEPINES SCREEN URINE NEGATIVE (NEGATIVE); *COCAINE SCREEN URINE NEGATIVE (NEGATIVE); CANNABINOID URINE SCREEN NEGATIVE (NEGATIVE); METHADONE URINE SCREEN NEGATIVE (NEGATIVE); OPIATES URINE SCREEN NEGATIVE (NEGATIVE); PHENCYCLIDINE URINE SCREEN NEGATIVE (NEGATIVE)
[2022-03-21] MEDS: PANTOPRAZOLE SODIUM 40 MG/VIAL IV SCH (09:49)
[2022-03-21] MEDS: DEXT 5%/LACTATED RINGERS 1,000 ML IV SCH ×2 (09:49→20:18)
[2022-03-21] MEDS: FUROSEMIDE 40MG/4ML VIAL IVP SCH (11:43)
[2022-03-21 12:00] LABS: PLATELET ESTIMATE NORMAL
[2022-03-21] MEDS ORDERED: VANCOMYCIN 750MG PREMIX 150 ML IV SCH (14:00)
[2022-03-21] MEDS ORDERED: VANCOMYCIN 1GM PMX (XELLIA) 200 ML IV SCH (18:00)
[2022-03-21] MEDS: ENOXAPARIN 30MG/0.3ML SYR SUBCUT SCH (20:17)
[2022-03-21] MEDS ORDERED: VANCOMYCIN 750 MG in DEXT 5% WATER 250 ML IV SCH (21:00)
[2022-03-22] VITALS (35 sets, daily range): BP systolic 108–165; BP diastolic 54–93
[2022-03-22] MEDS: IPRATROPIUM/ALBUTEROL 0.5-3(2.5)MG/3ML NEB HHN SCH ×6 (00:42→20:51)
[2022-03-22] MEDS: BLOOD SUGAR DIAGNOSTIC STRIP TEST SCH ×3 (05:51→18:00)
[2022-03-22] MEDS: METHYLPREDNISOLONE SOD SUCC 125 MG/2 ML VIAL IV SCH ×3 (05:51→21:18)
[2022-03-22] MEDS: PIPERACILLIN/TAZOBACTAM 3.375G in DEXT 5% WATER 50ML IV SCH (05:51)
[2022-03-22] MEDS: INSULIN LISPRO 100 UNITS/ML SUBCUT SCH ×3 (06:09→18:00)
[2022-03-22 08:13] LABS: BG BASE EXCESS 11.9 mmol/L (-2.0-2.0); BG CARBOXYHEMOGLOBIN 0.3 % (0.5-1.5); BG DEOXYHEMOGLOBIN 1.8 % (0.0-5.0); BG FRACTION INSPIRED OXYGEN 40; BG HCO3 ACT 36.6 mmol/L (22.0-26.0); BG OXYGEN SATURATION 98.2 % (92.0-98.5); BG OXYHEMOGLOBIN 97.9 % (94.0-97.0); BG PCO2 48.9 mmHg (35.0-45.0); BG PH 7.492 (7.350-7.450); BG PO2 139.3 mmHg (75.0-100.0); BG SAMPLE SITE LEFT RADIAL; BG TOTAL HEMOGLOBIN 10.3 g/dL (12.0-18.0); BG VENT MODE VENT - AC
[2022-03-22] MEDS: PANTOPRAZOLE SODIUM 40 MG/VIAL IV SCH (09:39)
[2022-03-22] MEDS: FUROSEMIDE 40MG/4ML VIAL IVP SCH (09:40)
[2022-03-22] MEDS: DEXT 5%/LACTATED RINGERS 1,000 ML IV SCH (10:30)
[2022-03-22 13:02] LABS: BG BASE EXCESS 12.9 mmol/L (-2.0-2.0); BG CARBOXYHEMOGLOBIN 0.2 % (0.5-1.5); BG DEOXYHEMOGLOBIN 1.8 % (0.0-5.0); BG FRACTION INSPIRED OXYGEN 40; BG HCO3 ACT 38.1 mmol/L (22.0-26.0); BG METHEMOGLOBIN 0.4 % (0.0-1.5); BG OXYGEN SATURATION 98.2 % (92.0-98.5); BG OXYHEMOGLOBIN 97.6 % (94.0-97.0); BG PCO2 52.2 mmHg (35.0-45.0); BG PH 7.481 (7.350-7.450); BG PO2 132.6 mmHg (75.0-100.0); BG SAMPLE SITE RIGHT RADIAL; BG TOTAL HEMOGLOBIN 10.9 g/dL (12.0-18.0); BG VENT MODE VENT - CPAP
[2022-03-22] MEDS ORDERED: POTASSIUM CHLORIDE 20MEQ/PACKET PO NR (13:15)
[2022-03-22] MEDS: ENOXAPARIN 30MG/0.3ML SYR SUBCUT SCH (21:18)
[2022-03-23] VITALS (34 sets, daily range): BP systolic 102–156; BP diastolic 48–79
[2022-03-23] MEDS: DEXT 5%/LACTATED RINGERS 1,000 ML IV SCH ×2 (00:11→13:10)
[2022-03-23] MEDS: INSULIN LISPRO 100 UNITS/ML SUBCUT SCH ×4 (00:11→17:13)
[2022-03-23] MEDS: BLOOD SUGAR DIAGNOSTIC STRIP TEST SCH ×4 (00:12→17:12)
[2022-03-23] MEDS: IPRATROPIUM/ALBUTEROL 0.5-3(2.5)MG/3ML NEB HHN SCH ×6 (00:54→20:33)
[2022-03-23] MEDS: METHYLPREDNISOLONE SOD SUCC 125 MG/2 ML VIAL IV SCH ×3 (06:11→21:35)
[2022-03-23] MEDS ORDERED: VANCOMYCIN 750 MG in DEXT 5% WATER 250 ML IV SCH (09:00)
[2022-03-23] MEDS: FUROSEMIDE 40MG/4ML VIAL IVP SCH (09:53)
[2022-03-23] MEDS: PANTOPRAZOLE SODIUM 40 MG/VIAL IV SCH (09:53)
[2022-03-23] MEDS: ENOXAPARIN 30MG/0.3ML SYR SUBCUT SCH (21:35)
[2022-03-24] VITALS (36 sets, daily range): BP systolic 130–159; BP diastolic 61–87
[2022-03-24] MEDS: BLOOD SUGAR DIAGNOSTIC STRIP TEST SCH ×5 (00:09→23:38)
[2022-03-24] MEDS: INSULIN LISPRO 100 UNITS/ML SUBCUT SCH ×5 (00:13→23:45)
[2022-03-24] MEDS: IPRATROPIUM/ALBUTEROL 0.5-3(2.5)MG/3ML NEB HHN SCH ×7 (00:28→23:43)
[2022-03-24] MEDS: DEXT 5%/LACTATED RINGERS 1,000 ML IV SCH ×2 (04:10→16:45)
[2022-03-24] MEDS: METHYLPREDNISOLONE SOD SUCC 125 MG/2 ML VIAL IV SCH ×3 (06:09→21:11)
[2022-03-24] MEDS: PANTOPRAZOLE SODIUM 40 MG/VIAL IV SCH (09:15)
[2022-03-24] MEDS: FUROSEMIDE 40MG/4ML VIAL IVP SCH (09:15)
[2022-03-24] MEDS ORDERED: METOPROLOL TARTRATE 25MG TABLET PO NR (14:00)
[2022-03-24] MEDS: ENOXAPARIN 30MG/0.3ML SYR SUBCUT SCH (21:11)
[2022-03-24] MEDS: METOPROLOL TARTRATE 25MG TABLET PO SCH (21:11)
[2022-03-25] VITALS (30 sets, daily range): BP systolic 113–151; BP diastolic 58–106
[2022-03-25] MEDS ORDERED: POTASSIUM CHLORIDE INJ 40 MEQ in DEXT 5% WATER 500 ML IV NR ×2
[2022-03-25] MEDS: IPRATROPIUM/ALBUTEROL 0.5-3(2.5)MG/3ML NEB HHN SCH ×5 (03:52→20:37)
[2022-03-25 05:49] LABS: CHLORIDE 100 mEq/L (98-107)
[2022-03-25] MEDS: BLOOD SUGAR DIAGNOSTIC STRIP TEST SCH ×3 (06:25→18:09)
[2022-03-25] MEDS: DEXT 5%/LACTATED RINGERS 1,000 ML IV SCH ×2 (06:26→18:29)
[2022-03-25] MEDS: INSULIN LISPRO 100 UNITS/ML SUBCUT SCH ×3 (06:32→18:29)
[2022-03-25] MEDS: METHYLPREDNISOLONE SOD SUCC 125 MG/2 ML VIAL IV SCH ×3 (06:32→20:38)
[2022-03-25] MEDS: PANTOPRAZOLE SODIUM 40 MG/VIAL IV SCH (09:03)
[2022-03-25] MEDS: METOPROLOL TARTRATE 25MG TABLET PO SCH ×2 (09:03→20:40)
[2022-03-25] MEDS: FUROSEMIDE 40MG/4ML VIAL IVP SCH (09:03)
[2022-03-25 11:52] LABS: BG BASE EXCESS 19.6 mmol/L (-2.0-2.0); BG CARBOXYHEMOGLOBIN 0.1 % (0.5-1.5); BG DEOXYHEMOGLOBIN 0.9 % (0.0-5.0); BG FRACTION INSPIRED OXYGEN 36; BG HCO3 ACT 48.9 mmol/L (22.0-26.0); BG METHEMOGLOBIN 0.2 % (0.0-1.5); BG OXYGEN SATURATION 99.1 % (92.0-98.5); BG OXYHEMOGLOBIN 98.8 % (94.0-97.0); BG PCO2 88.8 mmHg (35.0-45.0); BG PH 7.359 (7.350-7.450); BG PO2 309.9 mmHg (75.0-100.0); BG SAMPLE SITE RIGHT RADIAL; BG TOTAL HEMOGLOBIN 11.1 g/dL (12.0-18.0); BG VENT MODE NASAL CANNULA
[2022-03-25] MEDS: ENOXAPARIN 30MG/0.3ML SYR SUBCUT SCH (20:40)
[2022-03-26] VITALS (13 sets, daily range): BP systolic 113–148; BP diastolic 65–94
[2022-03-26] MEDS: IPRATROPIUM/ALBUTEROL 0.5-3(2.5)MG/3ML NEB HHN SCH ×6 (00:41→20:37)
[2022-03-26] MEDS: BLOOD SUGAR DIAGNOSTIC STRIP TEST SCH ×5 (00:44→23:40)
[2022-03-26] MEDS: INSULIN LISPRO 100 UNITS/ML SUBCUT SCH ×5 (00:51→23:45)
[2022-03-26] MEDS: DEXT 5%/LACTATED RINGERS 1,000 ML IV SCH ×2 (05:46→21:10)
[2022-03-26] MEDS: METHYLPREDNISOLONE SOD SUCC 125 MG/2 ML VIAL IV SCH (05:47)
[2022-03-26 06:36] LABS: CHLORIDE 99 mEq/L (98-107)
[2022-03-26 06:44] LABS: PHOSPHORUS 1.8 mg/dL (2.5-4.9)
[2022-03-26 06:57] LABS: HEMATOCRIT. 34.3 % (36.0-48.0); HEMOGLOBIN. 11.1 g/dL (12.0-16.0); MEAN CORPUSCULAR HEMOGLOBIN 32.7 pg (28.0-32.0); MEAN CORPUSCULAR VOLUME 100.9 fL (81.0-99.0); PLATELET 130 x1000/uL (130-400); RED CELL DISTRIBUTION WIDTH 15.3 % (11.6-14.6)
[2022-03-26] MEDS: FUROSEMIDE 40MG/4ML VIAL IVP SCH (09:12)
[2022-03-26] MEDS: PANTOPRAZOLE SODIUM 40 MG/VIAL IV SCH (09:12)
[2022-03-26] MEDS: METOPROLOL TARTRATE 25MG TABLET PO SCH ×2 (09:13→21:14)
[2022-03-26 10:55] LABS: PLATELET ESTIMATE NORMAL
[2022-03-26] MEDS: METHYLPREDNISOLONE SOD SUCC 40 MG/ML VIAL IV SCH (17:42)
[2022-03-26] MEDS: ENOXAPARIN 30MG/0.3ML SYR SUBCUT SCH (21:13)
[2022-03-27] VITALS (12 sets, daily range): BP systolic 124–154; BP diastolic 55–94
[2022-03-27] MEDS: IPRATROPIUM/ALBUTEROL 0.5-3(2.5)MG/3ML NEB HHN SCH ×6 (00:39→21:05)
[2022-03-27 05:42] LABS: PROTHROMBIN TIME 10.9 sec (9.6-11.0)
[2022-03-27] MEDS: BLOOD SUGAR DIAGNOSTIC STRIP TEST SCH ×4 (05:42→23:51)
[2022-03-27] MEDS: INSULIN LISPRO 100 UNITS/ML SUBCUT SCH ×4 (05:42→23:58)
[2022-03-27 06:23] LABS: HEMATOCRIT. 35.3 % (36.0-48.0); MEAN CORPUSCULAR HEMOGLOBIN 32.6 pg (28.0-32.0); MEAN CORPUSCULAR VOLUME 104.5 fL (81.0-99.0); MEAN PLATELET VOLUME 8.9 fl (7.4-10.4); PLATELET 93 x1000/uL (130-400); RED BLOOD CELL COUNT 3.38 mill/uL (4.2-5.4)
[2022-03-27] MEDS: PANTOPRAZOLE SODIUM 40 MG/VIAL IV SCH (08:12)
[2022-03-27] MEDS: METHYLPREDNISOLONE SOD SUCC 40 MG/ML VIAL IV SCH ×2 (08:13→17:14)
[2022-03-27] MEDS: METOPROLOL TARTRATE 25MG TABLET PO SCH ×2 (08:13→22:07)
[2022-03-27] MEDS: FUROSEMIDE 40MG/4ML VIAL IVP SCH (08:13)
[2022-03-27] MEDS: DEXT 5%/LACTATED RINGERS 1,000 ML IV SCH ×2 (10:35→23:46)
[2022-03-27 15:11] LABS: PLATELET ESTIMATE DECREASED
[2022-03-27 16:41] LABS: CHLORIDE 97 mEq/L (98-107)
[2022-03-28] VITALS (12 sets, daily range): BP systolic 106–135; BP diastolic 55–77
[2022-03-28] MEDS: IPRATROPIUM/ALBUTEROL 0.5-3(2.5)MG/3ML NEB HHN SCH ×6 (00:30→20:08)
[2022-03-28] MEDS: BLOOD SUGAR DIAGNOSTIC STRIP TEST SCH ×3 (06:01→17:58)
[2022-03-28] MEDS: INSULIN LISPRO 100 UNITS/ML SUBCUT SCH ×3 (06:03→17:49)
[2022-03-28 07:05] LABS: HEMOGLOBIN. 8.5 g/dL (12.0-16.0); MEAN CORPUSCULAR HEMOGLOBIN 32.2 pg (28.0-32.0); MEAN CORPUSCULAR VOLUME 101.7 fL (81.0-99.0); MEAN PLATELET VOLUME 8.5 fl (7.4-10.4); PLATELET 108 x1000/uL (130-400); RED BLOOD CELL COUNT 2.65 mill/uL (4.2-5.4); RED CELL DISTRIBUTION WIDTH 15.6 % (11.6-14.6)
[2022-03-28 07:16] LABS: CHLORIDE 100 mEq/L (98-107)
[2022-03-28] MEDS: PANTOPRAZOLE SODIUM 40 MG/VIAL IV SCH ×2 (08:51→21:12)
[2022-03-28] MEDS: METHYLPREDNISOLONE SOD SUCC 40 MG/ML VIAL IV SCH (08:52)
[2022-03-28] MEDS: FUROSEMIDE 40MG/4ML VIAL IVP SCH (08:52)
[2022-03-28] MEDS: METOPROLOL TARTRATE 25MG TABLET PO SCH ×2 (08:53→21:14)
[2022-03-28] MEDS: DEXT 5%/LACTATED RINGERS 1,000 ML IV SCH (12:45)
[2022-03-28 13:20] LABS: PLATELET ESTIMATE DECREASED
[2022-03-28 15:31] LABS: BG BASE EXCESS 21.6 mmol/L (-2.0-2.0); BG CARBOXYHEMOGLOBIN 0.3 % (0.5-1.5); BG DEOXYHEMOGLOBIN 2.1 % (0.0-5.0); BG FRACTION INSPIRED OXYGEN 28; BG HCO3 ACT 48.8 mmol/L (22.0-26.0); BG METHEMOGLOBIN 0.2 % (0.0-1.5); BG OXYGEN SATURATION 97.9 % (92.0-98.5); BG OXYHEMOGLOBIN 97.4 % (94.0-97.0); BG PCO2 73.5 mmHg (35.0-45.0); BG PO2 130.5 mmHg (75.0-100.0); BG SAMPLE SITE RIGHT RADIAL; BG TOTAL HEMOGLOBIN 9.4 g/dL (12.0-18.0); BG VENT MODE OXYMIZER
[2022-03-29] VITALS (10 sets, daily range): BP systolic 85–160; BP diastolic 51–78
[2022-03-29] MEDS: IPRATROPIUM/ALBUTEROL 0.5-3(2.5)MG/3ML NEB HHN SCH ×6 (00:01→20:14)
[2022-03-29] MEDS: BLOOD SUGAR DIAGNOSTIC STRIP TEST SCH ×4 (00:14→18:17)
[2022-03-29] MEDS: INSULIN LISPRO 100 UNITS/ML SUBCUT SCH ×4 (00:15→18:00)
[2022-03-29] MEDS: DEXT 5%/LACTATED RINGERS 1,000 ML IV SCH ×2 (06:34→18:04)
[2022-03-29 06:44] LABS: HEMATOCRIT. 28.6 % (36.0-48.0); HEMOGLOBIN. 9.2 g/dL (12.0-16.0); MEAN CORPUSCULAR HEMOGLOBIN 32.7 pg (28.0-32.0); MEAN CORPUSCULAR VOLUME 101.3 fL (81.0-99.0); MEAN PLATELET VOLUME 7.9 fl (7.4-10.4); PLATELET 93 x1000/uL (130-400); RED BLOOD CELL COUNT 2.83 mill/uL (4.2-5.4); RED CELL DISTRIBUTION WIDTH 16.1 % (11.6-14.6)
[2022-03-29 07:00] LABS: INR 0.9; PROTHROMBIN TIME 10.1 sec (9.6-11.0)
[2022-03-29 07:09] LABS: CHLORIDE 99 mEq/L (98-107)
[2022-03-29] MEDS: METHYLPREDNISOLONE SOD SUCC 40 MG/ML VIAL IV SCH (08:46)
[2022-03-29] MEDS: FUROSEMIDE 40MG/4ML VIAL IVP SCH (08:46)
[2022-03-29] MEDS: PANTOPRAZOLE SODIUM 40 MG/VIAL IV SCH ×2 (08:46→21:24)
[2022-03-29] MEDS: METOPROLOL TARTRATE 25MG TABLET PO SCH ×2 (08:57→21:00)
[2022-03-29 09:06] LABS: PLATELET ESTIMATE DECREASED
[2022-03-29] MEDS ORDERED: CEFAZOLIN 1000MG PREMIX 50 ML IV NR (12:00)
[2022-03-29] MEDS ORDERED: PROPOFOL 200MG/20ML VIAL IV ONE (15:18)
[2022-03-29] MEDS ORDERED: ONDANSETRON HCL 4MG/2ML INJ ONE (15:58)
[2022-03-29] MEDS ORDERED: DEXAMETHASONE 4MG/ML 1ML VIAL ONE (15:58)
[2022-03-30] VITALS (10 sets, daily range): BP systolic 89–119; BP diastolic 50–76
[2022-03-30] MEDS: IPRATROPIUM/ALBUTEROL 0.5-3(2.5)MG/3ML NEB HHN SCH ×6 (00:15→21:46)
[2022-03-30] MEDS: INSULIN LISPRO 100 UNITS/ML SUBCUT SCH ×4 (06:00→17:43)
[2022-03-30] MEDS: DEXT 5%/LACTATED RINGERS 1,000 ML IV SCH ×2 (06:19→17:46)
[2022-03-30] MEDS: BLOOD SUGAR DIAGNOSTIC STRIP TEST SCH ×4 (06:19→17:43)
[2022-03-30 07:50] LABS: HEMOGLOBIN. 9.8 g/dL (12.0-16.0); MEAN CORPUSCULAR HEMOGLOBIN 33.1 pg (28.0-32.0); MEAN CORPUSCULAR VOLUME 101.9 fL (81.0-99.0); MEAN PLATELET VOLUME 8.7 fl (7.4-10.4); PLATELET 99 x1000/uL (130-400); RED BLOOD CELL COUNT 2.95 mill/uL (4.2-5.4); RED CELL DISTRIBUTION WIDTH 15.6 % (11.6-14.6)
[2022-03-30 07:52] LABS: CHLORIDE 99 mEq/L (98-107)
[2022-03-30] MEDS: METHYLPREDNISOLONE SOD SUCC 40 MG/ML VIAL IV SCH (08:54)
[2022-03-30] MEDS: PANTOPRAZOLE SODIUM 40 MG/VIAL IV SCH ×2 (08:54→20:35)
[2022-03-30] MEDS: FUROSEMIDE 40MG/4ML VIAL IVP SCH (08:55)
[2022-03-30] MEDS: METOPROLOL TARTRATE 25MG TABLET PO SCH ×3 (08:55→20:35)
[2022-03-30] MEDS ORDERED: LIDOCAINE HCL/PF 1% 2ML VIAL ONE (10:02)
[2022-03-30 10:08] LABS: PLATELET ESTIMATE SLIGHTLY DECREASED
[2022-03-30 10:33] LABS: BG BASE EXCESS 20.7 mmol/L (-2.0-2.0); BG DEOXYHEMOGLOBIN 5.4 % (0.0-5.0); BG HCO3 ACT 47.3 mmol/L (22.0-26.0); BG METHEMOGLOBIN 0.3 % (0.0-1.5); BG OXYGEN SATURATION 94.6 % (92.0-98.5); BG OXYHEMOGLOBIN 94.3 % (94.0-97.0); BG PCO2 67.4 mmHg (35.0-45.0); BG PH 7.464 (7.350-7.450); BG PO2 73.2 mmHg (75.0-100.0); BG SAMPLE SITE RIGHT RADIAL; BG TOTAL HEMOGLOBIN 9.4 g/dL (12.0-18.0); BG VENT MODE MASK - BIPAP
[2022-03-31] VITALS (11 sets, daily range): BP systolic 85–157; BP diastolic 14–102
[2022-03-31] MEDS: IPRATROPIUM/ALBUTEROL 0.5-3(2.5)MG/3ML NEB HHN SCH ×6 (00:12→21:25)
[2022-03-31] MEDS: BLOOD SUGAR DIAGNOSTIC STRIP TEST SCH ×5 (05:27→23:13)
[2022-03-31] MEDS: INSULIN LISPRO 100 UNITS/ML SUBCUT SCH ×5 (05:27→23:13)
[2022-03-31 06:43] LABS: HEMATOCRIT. 28.8 % (36.0-48.0); HEMOGLOBIN. 9.2 g/dL (12.0-16.0); MEAN CORPUSCULAR HEMOGLOBIN 32.8 pg (28.0-32.0); MEAN CORPUSCULAR VOLUME 102.9 fL (81.0-99.0); MEAN PLATELET VOLUME 8.9 fl (7.4-10.4); PLATELET 101 x1000/uL (130-400); RED CELL DISTRIBUTION WIDTH 15.5 % (11.6-14.6)
[2022-03-31 06:57] LABS: CHLORIDE 98 mEq/L (98-107)
[2022-03-31] MEDS: PANTOPRAZOLE SODIUM 40 MG/VIAL IV SCH ×2 (08:24→21:14)
[2022-03-31] MEDS: FUROSEMIDE 40MG/4ML VIAL IVP SCH (08:25)
[2022-03-31] MEDS: METOPROLOL TARTRATE 25MG TABLET PO SCH ×2 (08:26→21:14)
[2022-03-31] MEDS: DEXT 5%/LACTATED RINGERS 1,000 ML IV SCH ×2 (08:34→21:14)
[2022-03-31] MEDS ORDERED: PREDNISONE 20MG TABLET PO SCH (09:00)
[2022-03-31 09:42] LABS: PLATELET ESTIMATE DECREASED
[2022-04-01] VITALS (11 sets, daily range): BP systolic 116–166; BP diastolic 53–129
[2022-04-01] MEDS: IPRATROPIUM/ALBUTEROL 0.5-3(2.5)MG/3ML NEB HHN SCH ×5 (00:36→15:53)
[2022-04-01] MEDS: BLOOD SUGAR DIAGNOSTIC STRIP TEST SCH ×3 (05:34→18:39)
[2022-04-01] MEDS: INSULIN LISPRO 100 UNITS/ML SUBCUT SCH ×3 (05:34→18:00)
[2022-04-01] MEDS ORDERED: PREDNISONE 10MG TABLET PO SCH (09:00)
[2022-04-01] MEDS: PANTOPRAZOLE SODIUM 40 MG/VIAL IV SCH (09:04)
[2022-04-01] MEDS: METOPROLOL TARTRATE 25MG TABLET PO SCH (09:04)
[2022-04-01] MEDS: FUROSEMIDE 40MG/4ML VIAL IVP SCH (09:04)
[2022-04-01 13:16] LABS: BG BASE EXCESS 17.7 mmol/L (-2.0-2.0); BG CARBOXYHEMOGLOBIN 0.5 % (0.5-1.5); BG DEOXYHEMOGLOBIN 5.5 % (0.0-5.0); BG FRACTION INSPIRED OXYGEN 30; BG HCO3 ACT 42.6 mmol/L (22.0-26.0); BG METHEMOGLOBIN 0.1 % (0.0-1.5); BG OXYGEN SATURATION 94.5 % (92.0-98.5); BG OXYHEMOGLOBIN 93.9 % (94.0-97.0); BG PCO2 53.7 mmHg (35.0-45.0); BG PH 7.517 (7.350-7.450); BG PO2 74.6 mmHg (75.0-100.0); BG SAMPLE SITE RIGHT RADIAL; BG TOTAL HEMOGLOBIN 8.8 g/dL (12.0-18.0); BG VENT MODE MASK - BIPAP
== END 2022-04-01 18:53 | DRG 871 ==
LOC: ER 15:55 → EDBEDREQSVC 17:32 → ENRESERV 17:47 → CVICU 18:01 → SUPCPDRO 18:07 → EDBEDREQTM 18:08 → EDBEDREQ 18:08 → 5EST 03-25 11:43
PROVIDERS: ADMIT Internal Medicine; ATTEND Internal Medicine
PROC: 5A1945Z Respiratory Ventilation, 24-96 Consecutive Hours (ICD-10-PCS; principal; 2022-03-20)
PROC: 0BH17EZ Insertion of Endotracheal Airway into Trachea, Via Natural or Artificial Opening (ICD-10-PCS; 2022-03-20)
PROC: B54CZZA Ultrasonography of Left Lower Extremity Veins, Guidance (ICD-10-PCS; 2022-03-20)
PROC: 06HY33Z Insertion of Infusion Device into Lower Vein, Percutaneous Approach (ICD-10-PCS; 2022-03-20)
PROC: 02HV33Z Insertion of Infusion Device into Superior Vena Cava, Percutaneous Approach (ICD-10-PCS; 2022-03-24)
PROC: B548ZZA Ultrasonography of Superior Vena Cava, Guidance (ICD-10-PCS; 2022-03-24)
PROC: 5A09457 Assistance with Respiratory Ventilation, 24-96 Consecutive Hours, Continuous Positive Airway Pressure (ICD-10-PCS; 2022-03-25)
PROC: 0DH63UZ Insertion of Feeding Device into Stomach, Percutaneous Approach (ICD-10-PCS; 2022-03-29)
PROC: 0DB78ZX Excision of Stomach, Pylorus, Via Natural or Artificial Opening Endoscopic, Diagnostic (ICD-10-PCS; 2022-03-29)
PROC: 5A09457 Assistance with Respiratory Ventilation, 24-96 Consecutive Hours, Continuous Positive Airway Pressure (ICD-10-PCS; 2022-03-29)
PROC: 5A09357 Assistance with Respiratory Ventilation, Less than 24 Consecutive Hours, Continuous Positive Airway Pressure (ICD-10-PCS; 2022-04-01)
DX: A41.9 Sepsis, unspecified organism (principal); J96.21 Acute and chronic respiratory failure with hypoxia; I50.33 Acute on chronic diastolic (congestive) heart failure; J96.22 Acute and chronic respiratory failure with hypercapnia; J18.9 Pneumonia, unspecified organism; J44.1 Chronic obstructive pulmonary disease with (acute) exacerbation; E44.0 Moderate protein-calorie malnutrition; J44.0 Chronic obstructive pulmonary disease with (acute) lower respiratory infection; G93.49 Other encephalopathy; I27.20 Pulmonary hypertension, unspecified; D63.8 Anemia in other chronic diseases classified elsewhere; E78.5 Hyperlipidemia, unspecified; E11.9 Type 2 diabetes mellitus without complications; D53.9 Nutritional anemia, unspecified; I11.0 Hypertensive heart disease with heart failure; I48.91 Unspecified atrial fibrillation; Z20.822 Contact with and (suspected) exposure to COVID-19; K29.70 Gastritis, unspecified, without bleeding; R13.12 Dysphagia, oropharyngeal phase; Z87.891 Personal history of nicotine dependence; Z99.81 Dependence on supplemental oxygen; Z79.899 Other long term (current) drug therapy; Z68.27 Body mass index [BMI] 27.0-27.9, adult; R19.7 Diarrhea, unspecified
CPT/HCPCS: 36415; 36573; 36600; 71045; 80048; 80053; 80061; 80202; 80305; 81003; 82375; 82607; 82746; 82805; 82962; 83036; 83540; 83550; 83605; 83735; 83880; 84100; 84145; 84443; 84478; 84484; 85025; 87070; 87426; 88305; 88312; 88313; 92610; 93005; 93970; 94003; 94640; 94660; 97110; 97162; 97530; 99291; C1725; C9113; J0690; J0696; J1100; J1650; J1815; J1940; J2405; J2543; J2704; J2920; J2930; J3370; J3480; J3490; J7060; J7512